=== PATIENT | male | born 1985 | race Caucasian/White ===

== ENCOUNTER 2021-02-12 21:27 | Day surgery (SDCO) | payer OTHER ==
[~2021-02-12] VITALS: Ht 160 cm; Wt 78.0 kg
[2021-02-12 22:58] LABS: BASOPHIL 0.4 % (0-2); EOSINOPHIL 0.9 % (0-5); MCH 29.9 pg (25.0-31.0); MCV 87.7 fL (78.0-100.0); MONOCYTE 4.9 % (0-12); MPV 9.5 fL (6.0-9.5); NEUTROPHIL 79.8 % (41-80); NRBC 0; PLT 339 K/uL (150-400); RBC 5.36 M/uL (4.70-6.00); RDW 12.3 % (11.5-14.0); WBC 14.8 K/uL (4.0-10.5)
[2021-02-12 23:20] LABS: ALBUMIN 4.2 g/dL (3.4-5.0); BILIRUBIN - TOTAL 0.5 mg/dL (0.2-1.0); BUN/CREAT RATIO (CALC) 16.8 RATIO; CREATININE 0.95 mg/dL (0.67-1.17); GLOBULIN (CALCULATION) 3.4 g/dL; POTASSIUM 3.8 mmol/L (3.5-5.1); TOTAL PROTEIN 7.6 g/dL (6.4-8.2)
[2021-02-13 00:20] LABS: BILIRUBIN NEGATIVE (NEGATIVE); BLOOD NEGATIVE Ery/uL (NEGATIVE); CLARITY CLEAR (CLEAR); COLOR YELLOW (YELLOW); GLUCOSE (U) NORMAL (NORMAL); LEUKOCYTES NEGATIVE Leu/uL (NEGATIVE); NITRITE NEGATIVE (NEGATIVE); PROTEIN NEGATIVE (NEGATIVE); pH 7.5 (5.0-9.0)
[2021-02-13 03:09] LABS: CORONAVIRUS 2019 SARS-COV-2 NEGATIVE (NEGATIVE); INFLUENZA A NAA NEGATIVE (NEGATIVE)
[2021-02-14 07:41] LABS: BASOPHIL 0.2 % (0-2); EOSINOPHIL 0 % (0-5); HCT 44.3 % (42.0-52.0); HGB 15.3 g/dl (13.2-18.0); LYMPHOCYTE 8.2 % (15-48); MCHC 34.5 g/dL (32.0-36.0); MCV 86.9 fL (78.0-100.0); MONOCYTE 3.3 % (0-12); MPV 9.9 fL (6.0-9.5); NEUTROPHIL 87.7 % (41-80); NRBC 0; PLT 331 K/uL (150-400); WBC 10.5 K/uL (4.0-10.5)
[2021-02-14 08:10] LABS: ALBUMIN 3.3 g/dL (3.4-5.0); BILIRUBIN - TOTAL 0.5 mg/dL (0.2-1.0); BUN/CREAT RATIO (CALC) 10.6 RATIO; CREATININE 0.85 mg/dL (0.67-1.17); GLOBULIN (CALCULATION) 3.2 g/dL; POTASSIUM 3.9 mmol/L (3.5-5.1); TOTAL PROTEIN 6.5 g/dL (6.4-8.2)
[2021-02-14] MEDS ORDERED: COLACE100 MG PO (15:34)
[2021-02-14] MEDS ORDERED: ACETAMINOPHEN500 M1 PO (15:34)
[2021-02-14] MEDS ORDERED: OXY-IR 5MG5 MG PO (15:34)
[2021-02-14] MEDS ORDERED: MOTRIN600 MG PO (15:34)
== END 2021-02-14 17:17 | disposition home or self-care (01) ==
LOC: FER 21:27 → FMS 02-13 02:43
PROVIDERS: Emergency Medicine Emergency Medical Services; Hospitalist; Nurse Practitioner Family; ADMIT Family Medicine
DX: K80.10 Calculus of gallbladder with chronic cholecystitis without obstruction (principal); K66.0 Peritoneal adhesions (postprocedural) (postinfection); J98.11 Atelectasis; R73.9 Hyperglycemia, unspecified; Z20.822 Contact with and (suspected) exposure to COVID-19; Z72.0 Tobacco use
CPT/HCPCS: 36415; 36430; 76705; 80053; 80061; 81003; 83036; 83605; 83690; 85025; 87339; 93005; C9113; G0378; J1100; J1170; J1650; J1885; J2250; J2270; J2405; J2543; J2704; J3010; J7030; J7120; Q9967; U0002